=== PATIENT | male | born 1980 ===

== ENCOUNTER → 2017-06-08 | Outpatient (CLI) | payer OTHER, BC ==
--- NOTE | 2017-06-14 11:33 | CODING QUERY NO DIAGNOSIS ---
: 1980 TREATMENT RENDERED WITHOUT A DIAGNOSIS To promote full compliance with coding requirements relating to patient care, physician participation is requested in all cases of commercial finance analyst uncertainty. Please assist us with providing a diagnosis/symptom for the test(s) below: A diagnosis/symptom was not documented on your Order. A valid diagnosis/symptom is required to bill all insurances. Please remember that we are unable to code a diagnosis of rule out, probable, possible, questionable, or suspected. Tests that require a diagnosis for date of service 06/08/17: * AERO/ANAE CULTURE & GRAM STAIN-LEFT MIDDLE FINGER DIAGNOSIS: Provider Signature: Date: Thank you Skyla [facility] Information [facility] Once completed, please kindly fax back to [phone] For questions please call [phone]
== END | disposition home or self-care (01) ==
LOC: C.LABSPEC 16:54
PROVIDERS: ATTEND Orthopaedic Surgery
DX: S60.453A Superficial foreign body of left middle finger, initial encounter (principal); X58.XXXA Exposure to other specified factors, initial encounter